=== PATIENT | female | born 1960 | race Caucasian/White ===

== ENCOUNTER → 2017-06-13 | Outpatient (CLI) | payer MEDICAID | LOC: BMCIMAGING 11:23 | PROVIDERS: ATTEND Family Medicine | DX: Z13.820 Encounter for screening for osteoporosis (principal); M85.89 Other specified disorders of bone density and structure, multiple sites ==

== ENCOUNTER → 2017-06-19 | Outpatient (CLI) | payer MEDICAID | LOC: FIMAGING 11:07 | PROVIDERS: ATTEND Family Medicine | DX: Z12.31 Encounter for screening mammogram for malignant neoplasm of breast (principal) ==

== ENCOUNTER → 2017-09-13 | Outpatient (CLI) | payer MEDICAID | LOC: FIMAGING 14:37 → EDSTATUS 14:39 | PROVIDERS: ATTEND Family Medicine | DX: M25.552 Pain in left hip (principal) ==